=== PATIENT | male | born 2000 | race Caucasian/White ===

== ENCOUNTER 2019-01-19 21:19 | Emergency (ER) | payer MEDICAID ==
[~2019-01-19] VITALS: Ht 165.1 cm; Wt 70.3 kg
[2019-01-19 21:23] VITALS: Ht 165.1 cm; Wt 70.3 kg
[2019-01-19] MEDS ORDERED: ONDANSETRON 4 MG INJ IV STA (22:55)
[2019-01-19] MEDS ORDERED: SOD CHLORIDE 0.9% 1,000 ML IV STA (22:55)
[2019-01-19] MEDS ORDERED: KETOROLAC 30 MG INJ IV STA (22:55)
[2019-01-19] MEDS ORDERED: MECLIZINE 12.5 MG TAB PO ONE (23:00)
[2019-01-19 23:40] VITALS: BP 133/65; PULSE 75; RESP 17
== END 2019-01-20 00:42 | disposition home or self-care (01) ==
LOC: E/R 21:19
DX: F10.120 Alcohol abuse with intoxication, uncomplicated (principal); R51 Headache; R11.2 Nausea with vomiting, unspecified
CPT/HCPCS: J1885; J2405; J7030; Z7610; 96374; 96375